=== PATIENT | male | born 1970 | race Two or more races ===

== ENCOUNTER 2017-05-07 18:47 | Emergency (ER) | payer SELFPAY ==
[2017-05-07 18:50] VITALS: BMI 23.6
[2017-05-07] MEDS ORDERED: Naloxone 0.4 mg/ml Inj (Adult) ONE (18:57)
--- NOTE | 2017-05-07 19:19 | ED PDOC ---
Arrival/HPI - General Historian: Patient, EMS <AngelesSelene A - Last Filed: 05/08/17 01:15> <Dandy Fajardo - Last Filed: 05/08/17 06:21> - General Chief Complaint: Alcohol Ingestion Time Seen by Provider: 05/07/17 18:49 - History of Present Illness Narrative History of Present Illness (Text): 05/07/17 19:16 46yo male bib BLS for alcohol intoxication and possible substance use. Reports that Narcan was given enroute. Patient was picked up from the street. Patient admits drinking unknown number of alcohol and using heroine today. states he was on the street , when EMS pick him up. Denies any current chest pain, headache, dizziness, any other complaint. (Selene Reynoso A) Past Medical History - Provider Review Nursing Documentation Reviewed: Yes - Psychiatric Hx Substance Use: No <Selene Reynoso A - Last Filed: 05/08/17 01:15> Family/Social History - Physician Review Nursing Documentation Reviewed: Yes Family/Social History: Unknown Family HX Smoking Status: Never Smoked Hx Alcohol Use: No Hx Substance Use: No <Selene Reynoso A - Last Filed: 05/08/17 01:15> Allergies/Home Meds <AngeelsSelene A - Last Filed: 05/08/17 01:15> <Dandy Fajardo - Last Filed: 05/08/17 06:21> Allergies/Adverse Reactions: Allergies No Known Allergies Allergy (Verified 05/08/17 06:12) Home Medications: Home Meds Medication Instructions Recorded Confirmed No Known Home Med 05/08/17 05/08/17 Review of Systems - Physician Review All systems were reviewed & negative as marked: Yes - Review of Systems Systems not reviewed;Unavailable: Intoxicated Constitutional: Normal Eyes: Normal ENT: Normal Respiratory: Normal Cardiovascular: Normal Gastrointestinal: Normal Genitourinary Male: Normal Musculoskeletal: Normal Skin: Normal Neurological: Normal Endocrine: Normal Hemo/Lymphatic: Normal Psychiatric: Normal <Selene Reynoso A - Last Filed: 05/08/17 01:15> Physical Exam Vital Signs Reviewed: Yes Temperature: Afebrile Blood Pressure: Normal Pulse: Regular Respiratory Rate: Normal Appearance: Positive for: Well-Appearing, Non-Toxic, Comfortable Pain Distress: None Mental Status: Positive for: Alert and Oriented X 3, Lethargic (But Alert) - Systems Exam Head: Present: Atraumatic, Normocephalic Pupils: Present: PERRL Extroacular Muscles: Present: EOMI Conjunctiva: Present: Normal Mouth: Present: Moist Mucous Membranes Neck: Present: Normal Range of Motion Respiratory/Chest: Present: Clear to Auscultation, Good Air Exchange. No: Respiratory Distress, Accessory Muscle Use Cardiovascular: Present: Regular Rate and Rhythm, Normal S1, S2. No: Murmurs Abdomen: Present: Normal Bowel Sounds. No: Tenderness, Distention, Peritoneal Signs Back: Present: Normal Inspection Upper Extremity: Present: Normal Inspection. No: Cyanosis, Edema Lower Extremity: Present: Normal Inspection. No: Edema Neurological: Present: GCS=15, CN II-XII Intact, Speech Normal Skin: Present: Warm, Dry, Normal Color. No: Rashes Psychiatric: Present: Alert, Oriented x 3, Normal Insight, Normal Concentration <Selene Reynoso - Last Filed: 05/08/17 01:15> Vital Signs Temp Pulse Resp BP Pulse Ox 05/08/17 05:00 97.8 F 87 16 145/89 95 05/08/17 03:00 98.7 F 85 16 120/89 95 05/08/17 01:00 98.7 F 87 16 120/80 94 L 05/07/17 23:00 98.8 F 89 16 108/70 96 05/07/17 21:49 96 H 18 122/81 95 05/07/17 19:00 97 H 16 128/77 94 L Medical Decision Making <Selene Reynoso - Last Filed: 05/08/17 01:15> <Dandy Fajardo - Last Filed: 05/08/17 06:21> ED Course and Treatment: 05/08/17 01:15 PT in Emergency department for stated history. He was lethargic on arrival but became more AAO x3 in Emergency department s/p Narcan was given in Emergency department. Alcohol was 264 . UDS positive for opiates and benzo. Lab was otherwise unremarkable. Pt will be observed in Emergency department pending sobriety Case was endorsed to Dr. Fajardo to re evaluate pt and dispo accordingly. (Selene Reynoso) 05/08/17 02:00: Case endorsed to me by IRIS Reynoso. 05/08/17 03:36: Patient is tremulous and diaphoretic. Appears to be in withdrawal. (Dandy Fajardo) - Lab Interpretations Lab Results: 05/07/17 18:55 05/07/17 18:55 Lab Results 05/08/17 04:05: POC Glucose (mg/dL) 79 05/07/17 19:00: Urine Opiates Screen Positive H, Urine Methadone Screen Negative , Ur Barbiturates Screen Negative, Ur Phencyclidine Scrn Negative, Ur Amphetamines Screen Negative, U Benzodiazepines Scrn Positive, U Oth Cocaine Metabols Negative, U Cannabinoids Screen Negative 05/07/17 19:00: Urine Color Yellow, Urine Appearance Clear, Urine pH 6.5, Ur Specific Dalton 1.020, Urine Protein Trace H, Urine Glucose (UA) Negative, Urine Ketones Negative, Urine Blood Negative, Urine Nitrate Negative, Urine Bilirubin Negative, Urine Urobilinogen 0.2, Ur Leukocyte Esterase Negative, Urine RBC 0 - 2, Urine WBC 0 - 2, Amorphous Sediment Few, Urine Bacteria Many, Urine Other Fiber 05/07/17 18:55: Alcohol, Quantitative 264 H 05/07/17 18:55: Sodium 148, Potassium 3.5 L, Chloride 102, Carbon Dioxide 26, Anion Gap 23 H, BUN 11, Creatinine 0.6 L, Est GFR ( Amer) > 60, Est GFR ( Non-Af Amer) > 60, Random Glucose 105, Calcium 8.5, Total Bilirubin 0.4, AST 105 H, ALT 58 H, Alkaline Phosphatase 135 H, Total Protein 7.8, Albumin 4.4, Globulin 3.5, Albumin/Globulin Ratio 1.2 05/07/17 18:55: WBC 6.6, RBC 3.70, Hgb 12.0 L, Hct 35.7 L, MCV 96.5, MCH 32.4, MCHC 33.6, RDW 14.5, Plt Count 270, MPV 9.3, Gran % 70.9 H, Lymph % (Auto) 23.7 , [place] % (Auto) 4.3, Eos % (Auto) 0.5 L, Baso % (Auto) 0.6, Gran # 4.65, Lymph # (Auto) 1.6, [place] # (Auto) 0.3, Eos # (Auto) 0.0, Baso # (Auto) 0.04 - Medication Orders Current Medication Orders: Dextrose/Sodium Chloride (Dextrose 5%/0.45% Ns 1000 Ml) 1,000 mls @ 200 mls/hr IV .Q5H CHACHO Last Admin: 05/08/17 04:05 Dose: 200 mls/hr eMAR Start Stop Document 05/08/17 04:05 AB (Rec: 05/08/17 04:06 AB [id number] Intravenous Solution Start Date 05/08/17 Start Time 04:06 End Date 05/08/17 Discontinued Medications Magnesium Sulfate 2 gm/ Sodium (Chloride) 104 mls @ 102 mls/hr IVPB ONCE ONE Stop: 05/08/17 04:36 Last Admin: 05/08/17 04:06 Dose: 102 mls/hr eMAR Start Stop Document 05/08/17 04:06 AB (Rec: 05/08/17 04:06 AB [facility] [id number]) Intravenous Solution Start Date 05/08/17 Start Time 04:06 End Date 05/08/17 End time 05:08 Total Infusion Time 62 Lorazepam (Ativan) 2 mg IVP ONCE ONE PRN Reason: Protocol Stop: 05/08/17 03:35 Last Admin: 05/08/17 04:07 Dose: 2 mg IVP Administration Document 05/08/17 04:07 AB (Rec: 05/08/17 04:07 AB [facility] [id number] Charges for Administration # of IVP Administrations 1 Naloxone HCl (Narcan) 0.4 mg IVP STAT STA Stop: 05/07/17 19:29 Last Admin: 05/07/17 18:58 Dose: 0.4 mg IVP Administration Document 05/07/17 18:58 EQ (Rec: 05/07/17 19:57 EQ [id number]) Charges for Administration # of IVP Administrations 1 Disposition/Present on Arrival - Present on Arrival Any Indicators Present on Arrival: No History of DVT/PE: No History of Uncontrolled Diabetes: No Urinary Catheter: No History of Decub. Ulcer: No History Surgical Site Infection Following: None - Disposition Have Diagnosis and Disposition been Completed?: Yes <Diru,Happiness A - Last Filed: 05/08/17 01:15> - Present on Arrival Any Indicators Present on Arrival: No History of DVT/PE: No History of Uncontrolled Diabetes: No Urinary Catheter: No History of Decub. Ulcer: No - Disposition Have Diagnosis and Disposition been Completed?: Yes Disposition Time: 06:30 Patient Plan: Discharge <Dandy Fajardo - Last Filed: 05/08/17 06:21> - Disposition Diagnosis: Alcohol intoxication, Polysubstance abuse Disposition: HOME/ ROUTINE Patient Problems: Current Active Problems Problem Status Onset Alcohol intoxication Acute Polysubstance abuse Acute Condition: IMPROVED Discharge Instructions (ExitCare): Polysubstance Abuse (DC), Drug Abuse and Drug Addiction (DC) Referrals: [facility] Req, [Primary Care Provider] - Follow up with primary Forms: [employer] (Croatian)
[2017-05-07] MEDS ORDERED: Naloxone 0.4 mg/ml Inj (Adult) IVP STA (19:28)
[2017-05-07 19:31] LABS: BASO # 0.04 K/mm3 (0.0-2.0); BASO % 0.6 % (0.0-3.0); EOS % 0.5 % (1.5-5.0); GRAN # 4.65 (1.4-6.5); GRAN % 70.9 % (50.0-68.0); LYMPH # 1.6 (1.2-3.4); LYMPH % 23.7 % (22.0-35.0); MEAN CELL VOLUME 96.5 fl (80.0-105.0); MEAN CORPUSCULAR HEMOGLOBIN 32.4 pg (25.0-35.0); MEAN CORPUSCULAR HGB CONC 33.6 g/dl (31.0-37.0); MEAN PLATELET VOLUME 9.3 fl (7.0-11.0); MONO # 0.3 (0.1-0.6); MONO % 4.3 % (1.0-6.0); RBC 3.7 10^6/uL (3.5-6.1); RED CELL DISTRIBUTION WIDTH 14.5 % (11.5-14.5); WHITE BLOOD COUNT 6.6 10^3/ul (4.5-11.0)
[2017-05-07 19:32] LABS: ALB/GLOB RATIO 1.2 (1.1-1.8); ALBUMIN 4.4 g/dL (3.0-4.8); ALT/SGPT 58 U/L (7-56); AST/SGOT 105 U/L (17-59); BLOOD UREA NITROGEN 11 mg/dL (7-21); CALCIUM 8.5 mg/dL (8.4-10.5); GFR AFRICAN-AMERICAN > 60; GFR NON-AFRICAN AMERICAN > 60
[2017-05-07 19:34] LABS: PH,URINE 6.5 (4.7-8.0); URINE APPEARANCE CLEAR (CLEAR); URINE BILIRUBIN NEGATIVE (NEGATIVE); URINE BLOOD NEGATIVE (NEGATIVE); URINE COLOR YELLOW (YELLOW); URINE GLUCOSE (UA) NEGATIVE (NEGATIVE); URINE LEUKOCYTE ESTERASE NEGATIVE Leu/uL (NEGATIVE); URINE NITRATE NEGATIVE (NEGATIVE); URINE PROTEIN TRACE mg/dL (<30 mg/dL); URINE UROBILINOGEN 0.2 E.U./dL (<1 E.U./dL)
[2017-05-07 19:45] LABS: URINE RBC 0 - 2 /hpf (0-2)
[2017-05-07 19:46] LABS: URINE BACTERIA MANY (NEG); URINE WBC 0 - 2 /hpf (0-6)
[2017-05-07 19:47] LABS: URINE AMORPHOUS SEDIMENT FEW
[2017-05-07 20:01] LABS: BARBITURATES, UR NEGATIVE (NEGATIVE); BENZODIAZEPINES, UR POSITIVE (NEGATIVE); OPIATES, UR POSITIVE (NEGATIVE); PHENCYCLIDINE, UR NEGATIVE (NEGATIVE)
[2017-05-08 03:24] VITALS: RESP 16
[2017-05-08] MEDS ORDERED: Magnesium Sulfate 2 GM in Sodium Chloride 0.9% 100 ML IVPB ONE (03:35)
[2017-05-08] MEDS ORDERED: Dextrose 5%/0.45% NS 1,000 ML IV SCH (03:45)
[2017-05-08 07:03] VITALS: BP 140/85; PULSE 89; TEMP 98.6; O2SAT 99
--- NOTE | 2017-05-08 15:00 | CARD ---
APPROVED REPORT EKG Measurement Heart [id number] <Conclusion> Sinus tachycardia Otherwise normal ECG
== END 2017-05-08 07:03 | disposition home or self-care (01) ==
LOC: ED 18:47
DX: F19.10 Other psychoactive substance abuse, uncomplicated (principal); F10.129 Alcohol abuse with intoxication, unspecified; Y90.8 Blood alcohol level of 240 mg/100 ml or more
CPT/HCPCS: 80053; 81001; 82948; 85025; 93005; 96365; 96375; 99285; G0480; J2060; J2310; J3475; J7042